=== PATIENT | female | born 1980 | race Caucasian/White ===

== ENCOUNTER 2021-04-18 09:10 | Outpatient (CLI) | payer BC | END 2021-04-18 09:11 | disposition home or self-care (01) | LOC: BICMAMMO 09:10 | PROVIDERS: ATTEND Family Medicine | DX: Z12.31 Encounter for screening mammogram for malignant neoplasm of breast (principal) | CPT/HCPCS: 77063; 77067 ==

== ENCOUNTER 2021-11-28 08:40 | Outpatient (CLI) | payer BC | END 2021-11-28 08:41 | disposition home or self-care (01) | LOC: CT 08:40 | PROVIDERS: ATTEND Family Medicine | DX: R10.2 Pelvic and perineal pain (principal); N83.9 Noninflammatory disorder of ovary, fallopian tube and broad ligament, unspecified | CPT/HCPCS: 74177 ==

== ENCOUNTER 2022-04-23 11:52 | Emergency (ER) | payer BC, OTHER ==
[~2022-04-23 11:52] MED LIST: Iopamidol-370 76% 500 ML 1 ML ONE
[2022-04-23 12:45] LABS: Mean Corpuscular HGB CONC 33.4 g/dL (32.0-36.0); Mean Corpuscular Hemoglobin 30.8 pg (27.0-31.0); Mean Corpuscular Volume 92.4 fl (78.0-98.0); Mean Platelet Volume 7.3 fL (7.4-10.4); Platelet Count 346 10x3/uL (130-400); RBC Distribution Width 12.7 % (11.5-14.5); Red Blood Cell (RBC) Count 5.18 mill/uL (4.20-5.40); White Blood Cell (WBC) Count 16.5 10x3/uL (4.8-10.8)
[2022-04-23] MEDS ORDERED: Ondansetron PF 4 MG/2 ML Vial ONE (12:46)
[2022-04-23] MEDS ORDERED: Morphine 4 MG/ML VIAL ONE (12:46)
[2022-04-23 12:53] LABS: ALT (SGPT) 19 U/L (8-55); AST (SGOT) 19 U/L (5-34); Albumin 4.4 g/dL (3.5-5.0); Alkaline Phosphatase 122 U/L (40-110); Anion Gap 15 mmol/L (10-20); BUN (Urea Nitrogen) 8 mg/dL (7.0-18.7); Bilirubin, Total 0.7 mg/dL (0.2-1.2); Calc. Creatinine Clearance 0 mL/min (70-130); Calcium 9.9 mg/dL (7.8-10.44); Carbon Dioxide 22 mmol/L (22-29); Chloride 103 mmol/L (98-107); Estimated GFR 110; Globulin 3.3 g/dL (2.4-3.5); Glucose 92 mg/dL (70-105); Lipase 31 U/L (8-78); Potassium 4.2 mmol/L (3.5-5.1); Protein, Total 7.7 g/dL (6.0-8.3); Sodium 136 mmol/L (136-145)
[2022-04-23 13:03] LABS: Band 10 % (5-11); Eosinophils 2 % (0-10); Lymphocytes 4 % (21-51); MDiff Complete? YES; Monocytes 3 % (0-10); Neutrophil 80 % (42-75); Platelet Morphology Comment Appears Adequate; RBC Morphology Normal; Reactive Lymphocytes 1 % (0-10)
[2022-04-23 13:36] LABS: BHCG - Serum Negative (NEGATIVE); Pregs Control Background? CLEAR/WHITE (CLR/WHITE); Pregs Control Bar Appear? YES (CONTROL BAR)
[2022-04-23] MEDS ORDERED: Fentanyl 100 MCG/2 ML VIAL ONE (13:48)
[2022-04-23 15:48] LABS: Pregnancy Test - Urine (BHCG) Negative (Negative); Pregu Control Background? CLEAR/WHITE (CLR/WHITE); Pregu Control Bar Appear? YES (CONTROL BAR); Specific Gravity 1.029 (1.002-1.036)
[2022-04-23 15:49] LABS: Bacteria/HPF 1+ HPF (None Seen); Bilirubin Negative (Negative); Blood, Urine Negative (Negative); Clarity Clear (Clear); Glucose, Urine (Dipstick) Normal (Negative); Ketone, Urine 10 mg/dL (Negative); Leukocyte 25 Leu/uL (Negative); Nitrite Negative (Negative); Protein, Urine (Dipstick) Negative (Neg-Trace); RBC/HPF 0-3 HPF (0-3); Specific Gravity, Urine 1.029 (1.002-1.036); Urobilinogen Normal mg/dL (Less than 2); WBC/HPF 0-3 HPF (0-3); pH, Urine 6.5 (5.0-9.0)
== END 2022-04-23 16:40 | disposition home or self-care (01) ==
LOC: ERS 11:52
DX: R10.33 Periumbilical pain (principal)
CPT/HCPCS: 74177; 80053; 81003; 81015; 81025; 83690; 84703; 85025; 96374; 96375; J2270; J2405; J3010; Q9967

== ENCOUNTER 2022-07-10 13:08 | Outpatient (CLI) | payer OTHER ==
[2022-07-10 13:56] LABS: #Basophils 0.1 10x3/uL (0.0-0.2); #Eosinphils 0.5 10x3/uL (0.0-0.5); #Monocytes 0.9 10x3/uL (0.0-1.1); #Neutrophils 9.9 10x3/uL (1.5-8.4); %Basophils 0.4 % (0.0-2.0); %Eosinophils 3.3 % (0.0-6.0); %Lymphocytes 20.5 % (18.0-47.0); %Monocytes 6.3 % (0.0-10.0); Hemoglobin 14.3 g/dL (12.0-15.5); Mean Corpuscular HGB CONC 33.4 g/dL (32.0-36.0); Mean Corpuscular Hemoglobin 29.3 pg (27.0-33.0); Mean Corpuscular Volume 87.7 fl (81.6-98.3); Mean Platelet Volume 9.2 fl (7.4-10.4); Platelet Count 348 10x3/uL (150-450); RBC Distribution Width 13.6 % (11.5-14.5); Red Blood Cell (RBC) Count 4.88 10x6/uL (3.90-5.03); White Blood Cell (WBC) Count 14.4 10x3/uL (3.5-10.5)
== END 2022-07-10 13:09 | disposition home or self-care (01) ==
LOC: LABBT 13:08
PROVIDERS: ATTEND Orthopaedic Surgery Hand Surgery
DX: Z01.812 Encounter for preprocedural laboratory examination (principal); M67.431 Ganglion, right wrist
CPT/HCPCS: 85025

== ENCOUNTER 2022-07-15 06:27 | Day surgery (SDC) | payer OTHER ==
[2022-07-11 14:05] VITALS: BMI 38.0
[2022-07-15] MEDS ORDERED: Neomycin-Polymyxin 1 ML AMP ONE (07:48)
[2022-07-15] MEDS ORDERED: Bacitracin Zinc Ointment 30 gm TUBE ONE (07:48)
[2022-07-15] MEDS ORDERED: Bupivacaine PF 0.5% 30 ML VIAL ONE (07:48)
[2022-07-15] MEDS ORDERED: Betamet Acet/Betamet Na Ph 30 MG/5 ML VIAL ONE (07:49)
[2022-07-15] MEDS ORDERED: CEFAZOLIN 2 GM VIAL ONE (08:15)
[2022-07-15] MEDS ORDERED: Promethazine HCl 25 MG/ML VIAL ONE (08:15)
[2022-07-15] MEDS ORDERED: fentaNYL 50 mcg/mL 1 mL Vial ONE (08:15)
[2022-07-15] MEDS ORDERED: Sodium Chloride 0.9% 100 ML ONE (08:15)
[2022-07-15] MEDS ORDERED: Lidocaine 1% PF 5 ML VIAL ONE (08:23)
[2022-07-15] MEDS ORDERED: PROPOFOL 200 MG/20 ML VIAL ONE (08:23)
[2022-07-15] MEDS ORDERED: Ondansetron PF 4 MG/2 ML Vial ONE (08:23)
[2022-07-15] MEDS ORDERED: Ketorolac Tromethamine 30 MG/ML VIAL ONE (08:23)
[2022-07-15] MEDS ORDERED: Dexamethasone 20 MG/5 ML VIAL ONE (08:23)
[2022-07-15] MEDS ORDERED: ePHEDrine Sulfate 50 MG/10 ML VIAL ONE (08:23)
== END 2022-07-15 10:35 | disposition home or self-care (01) ==
LOC: SDC 06:27
PROVIDERS: ATTEND Orthopaedic Surgery Hand Surgery
PROC: 0RBN0ZZ Excision of Right Wrist Joint, Open Approach (ICD-10-PCS; principal; 2022-07-15)
DX: M67.431 Ganglion, right wrist (principal); M65.88 Other synovitis and tenosynovitis, other site; J30.2 Other seasonal allergic rhinitis; Z87.891 Personal history of nicotine dependence; Z88.5 Allergy status to narcotic agent
CPT/HCPCS: 88304; J0702; J1100; J1885; J2405; J2550; J2704; J3010; J3490; S0020

== ENCOUNTER 2023-05-26 11:11 | Outpatient (CLI) | payer OTHER | END 2023-05-26 11:12 | disposition home or self-care (01) | LOC: BICRAD 11:11 | PROVIDERS: ATTEND Family Medicine | DX: M25.511 Pain in right shoulder (principal) ==